=== PATIENT | female | born 1955 | race Caucasian/White ===

== ENCOUNTER → 2020-08-13 | Day surgery (SDC) | payer OTHER ==
[2020-08-12 11:12] LABS: COVID AG,FIA SOURCE NASOPHARYNGEAL
[~2020-08-13] VITALS: Ht 157.5 cm; Wt 60.0 kg
[~2020-08-13] MED LIST: ALBU8HFA IH; ALLUPURINOL PO; AMLO-257 PO; ATOR10TA84 PO; FentaNYL CITRATE PF 100 MCG/2 ML VIAL ONE; GABA-1181 PO; GEMF600T90 PO; HYDR-3831 PO; ISOS10TA16 PO; LORA10TA7 PO; LOSA50TA37 PO; MIDAZOLAM HCL 2 MG/2 ML VIAL ONE; MONT-35 PO; MethylPREDNISolone SOD SUCC 125 MG/2 ML VIAL IVP ONE; MethylPREDNISolone SOD SUCC 125 MG/2 ML VIAL ONE; OMEP20 PO; OXYGEN THERAPY IH SCH; SODIUM CHLORIDE 0.9% 1,000 ML IV ONE; SODIUM CHLORIDE 0.9% 1,000 ML ONE
== END | disposition home or self-care (01) ==
LOC: SURGERY 06:32
PROVIDERS: ATTEND Internal Medicine Critical Care Medicine
DX: J38.4 Edema of larynx (principal); B37.0 Candidal stomatitis; D64.9 Anemia, unspecified; Z90.49 Acquired absence of other specified parts of digestive tract; Z98.890 Other specified postprocedural states
CPT/HCPCS: 31623; 31624; 71045; 87015; 87070; 87101; 87205; 87206; 87220; 87426; 88108; 88184; 88185; 88312; C9803; J2250; J2930; J3010; J7030

== ENCOUNTER → 2022-11-03 | Day surgery (SDC) | payer OTHER ==
[~2022-11-03] VITALS: Ht 157.5 cm; Wt 61.7 kg
[~2022-11-03] MED LIST changes: +ALBU18HF12 IH; -ALBU8HFA IH; +ALBUTEROL SULFATE 2.5 MG/0.5 ML NEB SOLUTION NEB ONE; +ATOR10TA PO; -ATOR10TA84 PO; +BENZOCAINE 20% 50 MCG/SPRAY 57 GM TP ONE; +GEMF-77 PO; -GEMF600T90 PO; +LIDOCAINE 2% 11 ML JELLY TP ONE; +LIDOCAINE 4% 50 ML SOLUTION TP ONE; +LOSA-382 PO; -LOSA50TA37 PO; -OXYGEN THERAPY IH SCH; +SODIUM CHLORIDE 0.9% 0 ML ONE
[2022-11-03 08:31] LABS: GLUCOMETER DEV NAME(LOC) SDS.; GLUCOSE,POINT OF CARE 121 MG/DL (70-110)
== END | disposition still patient (30) ==
LOC: SURGERY 06:49
PROVIDERS: ATTEND Internal Medicine Critical Care Medicine
DX: J38.4 Edema of larynx (principal); B37.0 Candidal stomatitis; Z79.899 Other long term (current) drug therapy; Z90.49 Acquired absence of other specified parts of digestive tract; Z98.890 Other specified postprocedural states
CPT/HCPCS: 31623; 88112; 82962; 82784 ×3; 87206; 87101; 87220; 87070; 36415; 82103; 31624; 94640; 71045; 71250; 87015; 81220; J3010; J2250; J2930; Q9967; J7030; J7613; Z7610

== ENCOUNTER 2023-12-07 06:20 | Day surgery (SDC) | payer OTHER ==
[~2023-12-07 06:20] MED LIST changes: -ALBUTEROL SULFATE 2.5 MG/0.5 ML NEB SOLUTION NEB ONE; +ALLO100T PO; -ALLUPURINOL PO; -BENZOCAINE 20% 50 MCG/SPRAY 57 GM TP ONE; +DULO20CA71 PO; +FOLI-130 PO; -FentaNYL CITRATE PF 100 MCG/2 ML VIAL ONE; -GEMF-77 PO; -LIDOCAINE 2% 11 ML JELLY TP ONE; -LIDOCAINE 4% 50 ML SOLUTION TP ONE; -LORA10TA7 PO; -MIDAZOLAM HCL 2 MG/2 ML VIAL ONE; -MethylPREDNISolone SOD SUCC 125 MG/2 ML VIAL IVP ONE; -MethylPREDNISolone SOD SUCC 125 MG/2 ML VIAL ONE; -OMEP20 PO; +OMEP20CA12 PO; -SODIUM CHLORIDE 0.9% 0 ML ONE; -SODIUM CHLORIDE 0.9% 1,000 ML IV ONE; -SODIUM CHLORIDE 0.9% 1,000 ML ONE
[2023-12-07] MEDS ORDERED: LIDOCAINE 4% 50 ML SOLUTION TP ONE (06:21)
[2023-12-07] MEDS ORDERED: LIDOCAINE 2% 11 ML JELLY TP ONE (06:21)
[2023-12-07] MEDS ORDERED: BENZOCAINE 20% 50 MCG/SPRAY 57 GM TP ONE (06:21)
[2023-12-07] MEDS ORDERED: ALBUTEROL SULFATE 2.5 MG/0.5 ML NEB SOLUTION NEB ONE (06:21)
[2023-12-07] MEDS ORDERED: SODIUM CHLORIDE 0.9% 1,000 ML ONE (07:06)
[2023-12-07] MEDS: SODIUM CHLORIDE 0.9% 1,000 ML IV ONE (07:44)
[2023-12-07 07:50] LABS: GLUCOMETER DEV NAME(LOC) SDS.; GLUCOSE,POINT OF CARE 123 MG/DL (70-110)
[2023-12-07] MEDS ORDERED: MIDAZOLAM HCL 2 MG/2 ML VIAL ONE (08:33)
[2023-12-07] MEDS ORDERED: FentaNYL CITRATE PF 100 MCG/2 ML VIAL ONE (08:33)
[2023-12-07 09:20] VITALS: PULSE 56; RESP 18; O2SAT 100
[2023-12-07] MEDS ORDERED: MethylPREDNISolone SOD SUCC 125 MG/2 ML VIAL ONE (09:38)
[2023-12-07] MEDS: MethylPREDNISolone SOD SUCC 125 MG/2 ML VIAL IVP ONE (10:13)
== END 2023-12-07 11:35 | disposition home or self-care (01) ==
LOC: SURGERY 06:20
PROVIDERS: ATTEND Internal Medicine Critical Care Medicine
DX: R05.3 Chronic cough (principal); J38.4 Edema of larynx; B37.0 Candidal stomatitis; R06.2 Wheezing; R91.8 Other nonspecific abnormal finding of lung field; J47.9 Bronchiectasis, uncomplicated; J84.10 Pulmonary fibrosis, unspecified; J98.09 Other diseases of bronchus, not elsewhere classified; J98.8 Other specified respiratory disorders; I11.9 Hypertensive heart disease without heart failure; E11.9 Type 2 diabetes mellitus without complications; K21.9 Gastro-esophageal reflux disease without esophagitis; D64.9 Anemia, unspecified; M10.9 Gout, unspecified; M54.50 Low back pain, unspecified; A15.9 Respiratory tuberculosis unspecified; Z85.21 Personal history of malignant neoplasm of larynx; Z90.49 Acquired absence of other specified parts of digestive tract; Z98.890 Other specified postprocedural states; Z79.899 Other long term (current) drug therapy
CPT/HCPCS: 87206; 87101; 87220; 87070; 88108; 31623; 31624; 94640; 71045; 87015; J3010; J2250; J2919; Q9967; J7030; J7613; Z7610